=== PATIENT | female | born 1980 ===

== ENCOUNTER 2019-12-30 14:48 | Inpatient (IN) ==
[2019-12-30 17:12] LABS: Hematocrit (blood only) 36.6 % (37-47); Hemoglobin 12.4 g/dL (12.0-16.0); Mean Corpuscular Hemoglobin 32.2 pg (25-34); Mean Corpuscular Hgb Conc 33.9 g/dL (32-36); Mean Corpuscular Volume 95.1 fL (80-100); Mean Platelet Volume 10.6 fL (7.4-10.4); Platelet Count 253 K/uL (130-400); RDW Coefficient of Variation 14.4 % (11.5-14.5); Red Blood Count 3.85 M/uL (4.2-5.4); White Blood Count 11.34 K/uL (4.8-10.8)
[2019-12-30 17:30] LABS: Albumin Level 2.5 gm/dl (3.4-5.0); BUN Creatinine Ratio 10.2 (10-20); Calcium 8.9 mg/dl (8.5-10.1); Creatinine Clr Calc Pharmacy 144.9 ml/min; Est GFR (African American) 131.5; Est GFR (Non-African American) 113.4; Potassium 3.8 mmol/L (3.5-5.1)
[2019-12-30 17:33] LABS: Albumin Globulin Ratio 0.7 (0.9-2); Bilirubin,Total 0.2 mg/dl (0.2-1); Globulin 3.8 gm/dl (2.5-4.0); Total Protein 6.3 gm/dl (6.4-8.2)
[2019-12-30] MEDS ORDERED: OXYTOCIN 30 UNITS/500 ML BAG IV PRN ×2 (18:23→18:25)
--- NOTE | 2019-12-30 19:02 | History & Physical Report ---
Date of Service December 30, 2019 Assessment & Plan (1) Gestational hypertension: (2) Encounter for induction of labor: (3) Unfavorable cervix in term : (4) Post-term , 40-42 weeks of gestation: discussed with patient options for management and dx of gest htn. given ega rec induction and she agreed. she is agreeable to bhat ripening balloon which was placed. then will plan pitocin induction after she has had some dinner at her request. History of Present Illness Chief Complaint: decreased fm Primary Care Provider: NO PCP 39yo at 40+wks ana maria presents to L&D with above cc. She initially came in for nst and it was reactive. BPs elevated, even after sitting for 5min. No rom, no vb. No ctx. Rec she consider induction for gest htn as I feel likely will meet criteria at 4hr la nena. She was agreeable. Had some itching and was worried about that. Labs checked and normal. Urine protein neg. pnc c/b 1. ama 2. palpitation on metoprolol 3. h/o eating disorder 4. excessive wt gain in 5. h/o alcoholism pnl rh neg, rubella immune, gbs negative obh: g1 gynh: no stds, normal pap smears pmh: palpitations, h/o bulemia psh: wisdom teeth Allergies Allergy/AdvReac Type Severity Reaction Status Date / Time Sulfa (Sulfonamide Allergy Unknown Verified 12/27/19 09:39 Antibiotics) Home Medications Home Medications Medication Instructions Recorded Confirmed Type PNV cmb#95-ferrous fumarate-FA 1 tab PO DAILY 08/07/19 12/27/19 History [] ferrous sulfate [iron] 0 mg PO DAILY 08/07/19 12/27/19 History metoprolol succinate 25 mg capsule 12.5 mg PO DAILY ea 09/05/19 12/27/19 History sprinkle, ext. release 24 hr famotidine-Ca carb-mag hydrox PO 12/12/19 12/27/19 History Patient History Social History Preferred Language: Mauritian marital status: Current Living Situation: Spouse Feels Safe at Home: Yes Smoking Status: Unknown if ever smoked Review of Systems as per Subjective / HPI Physical Exam Constitutional: WD/WN, vitals as above Respiratory: normal respiratory effort, lungs clear to auscultation Cardiovascular: Rate/Rhythm: regular rate and regular rhythm Gastrointestinal (Abdomen): soft gravid nt, efw 8# Musculoskeletal: +2 edema nontender calves Neurologic: grossly normal DTRs +2, no clonus Psychiatric: A+Ox3, euthymic affect Genitourinary: Manual OB Exam: + cervical dilation fingertip, + cervical effacement (75%) and + station -2 OB Exam Monitor Tracing: + external FHT monitor used (140 mod variability), + external uterine monitor used (no ctx), + category I and + normal FHT variability Procedure: Informed consent obtained to proceed with cx ripening with bhat Spec placed. cx os visualized and bhat threaded through os and balloon inflated with 40cc water. spec removed. taped to leg on tension. [place] well. Results & Data Vital Signs (Past 12 Hours) Vital Signs Pulse Resp BP Pulse Ox 12/30/19 16:36 111 H 143/66 H 12/30/19 16:31 103 H 152/78 H 12/30/19 16:26 96 H 144/76 H 12/30/19 16:03 104 H 18 127/65 12/30/19 15:21 105 H 95 12/30/19 15:16 108 H 95 12/30/19 15:12 106 H 155/72 H 12/30/19 15:11 110 H 20 173/91 H 97 12/30/19 15:06 118 H 95 12/30/19 15:01 121 H 96 12/30/19 14:56 116 H 95 12/30/19 14:53 121 H 18 144/98 H Code Status & VTE Plan VTE Prophylaxis Plan VTE Prophylaxis will be ordered: No Coding Level of Care Code None Diagnoses Gestational hypertension O13.9 Encounter for induction of labor Z34.90 Unfavorable cervix in term O34.40 Post-term , 40-42 weeks of gestation O48.0
[2019-12-30] MEDS: METOPROLOL SUCC 25MG EXT REL TAB PO SCH (21:29)
[2019-12-30] MEDS: LACTATED RINGER'S 1,000 ML IV PRN (21:30)
[2019-12-31] MEDS ORDERED: ePHEDrine sulfate 50 MG/ML AMP ONE (01:43)
[2019-12-31] MEDS ORDERED: fentaNYL 2MCG/ML ROPIV 1.25MG/ML 100 ML BAG EPI ONE (01:43)
[2019-12-31] MEDS ORDERED: fentaNYL citrate 100 MCG/2 ML VIAL ONE (01:43)
[2019-12-31] MEDS ORDERED: BUPIVACAINE 0.25% 30 ML VIAL ONE ×2 (01:43→15:28)
--- NOTE | 2019-12-31 02:05 | Anesthesiology Consultation ---
Date of Service December 31, 2019 Assessment & Plan ASA ASA2 Proposed Anesthesia Anesthesia Type: Labor Epidural Risk / Benefits Reviewed With: PT / POA / Parent / Guardian, Accepts Plan and Informed Consent Obtained History Height/Weight Height: 5 ft 3 in Weight: 115.031 kg Allergies Allergy/AdvReac Type Severity Reaction Status Date / Time Sulfa (Sulfonamide Allergy Unknown Verified 12/27/19 09:39 Antibiotics) Medications Home Medications Medication Instructions Recorded Confirmed Last Taken PNV cmb#95-ferrous fumarate-FA 1 tab PO DAILY 08/07/19 12/27/19 Unknown [] ferrous sulfate [iron] 0 mg PO DAILY 08/07/19 12/27/19 Unknown metoprolol succinate 25 mg capsule 12.5 mg PO DAILY ea 09/05/19 12/27/19 Unknown sprinkle, ext. release 24 hr famotidine-Ca carb-mag hydrox PO 12/12/19 12/27/19 Unknown Active Medications Generic Name Dose Route Start Last Admin Trade Name Freq PRN Reason Stop Dose Admin Lactated Ringer's 1,000 mls @ 125 mls/hr 12/30/19 18:23 12/30/19 21:30 Lr IV 01/01/20 18:22 125 mls/hr .Q8H PRN Administration L&D Protocol Protocol Oxytocin 30 units in 500 mls @ 13 mls/hr 12/30/19 18:25 12/31/19 01:00 Pitocin IV 01/01/20 18:24 0.78 units/hr .Q24H PRN 13 mls/hr Labor Induction/Augmentation Titration Protocol 0.78 UNITS/HR Metoprolol Succinate 25 mg 12/30/19 21:00 12/30/19 21:29 Toprol Xl PO 01/29/20 20:59 25 mg QPM SHANIA Administration Past Medical History Medical History H/O alcohol dependence H/O chlamydia infection H/O drug dependence H/O eating disorder Varicella Exercise / Class Metabolic Activity II 4-5 Yardwork/Stairs/Walk up hill Past Family History Family History Grandfather (Paternal) Diabetes Grandmother (Paternal) Breast cancer Past Surgical History Surgical History H/O cervical biopsy History of oral surgery Past Anesthesia History No Hx of Anesthesia Complications and No Family Hx of Anesthesia Complications History of PONV No Hx of PONV and No Hx of Motion Sickness Social History Smoking Status: Unknown if ever smoked Alcohol Intake Frequency Comment: documented hx of alcoholism, not discussed in the presence of her mother Review of Systems denies fever/cough/ colds/ chest pain/ SOB/ ANDREE Constitutional: no fever and no chills Respiratory: no cough and no dyspnea denies ANDREE Cardiovascular: no chest pain and no dyspnea on exertion Physical Exam Vital Signs Last Vital Signs Temp 36.7 C 12/30/19 23:30 Pulse 96 H 12/31/19 01:34 Resp 20 12/30/19 23:30 BP 152/75 H 12/31/19 01:34 Pulse Ox 95 12/30/19 15:21 ENMT Mouth: no TMJ abnormality and no dentition abnormality Thyromental Distance: > or= 3.5 Finger Breadths Mallampati Class: II Neck neck extension not limited Respiratory normal respiratory effort; no respiratory distress Auscultation: lungs clear to auscultation bilaterally Cardiovascular Rate/Rhythm: regular rate and regular rhythm Neurologic moves all extremities Psychiatric Orientation: alert and oriented x 3 Testing Laboratory Results 12/30/19 16:58 12/30/19 16:58
[2019-12-31] MEDS: LACTATED RINGER'S 1,000 ML IV PRN ×4 (02:20→19:28)
[2019-12-31] MEDS ORDERED: NALOXONE HCL 0.4 MG/1 ML VIAL/CARP IV PRN ×2 (03:11→21:53)
[2019-12-31] MEDS ORDERED: ePHEDrine sulfate 50 MG/ML AMP IV PRN ×2 (03:11→21:53)
[2019-12-31] MEDS ORDERED: ONDANSETRON INJ 2 MG/ML 2 ML VIAL IV PRN ×2 (03:11→21:53)
[2019-12-31] MEDS ORDERED: NALBUPHINE HCL INJ 10 MG/ML AMP IV PRN ×2 (03:11→21:53)
[2019-12-31] MEDS ORDERED: NALOXONE HCL 1 MG in SODIUM CHLORIDE 0.9% 1000ML 1,000 ML IV PRN ×2 (03:11→21:53)
[2019-12-31] MEDS ORDERED: DiphenhydrAMINE HCL 50 MG/ML VIAL IV PRN ×2 (03:11→21:53)
--- NOTE | 2019-12-31 03:17 | Labor Progress Brief Note ---
Date of Service December 31, 2019 Subjective Reason For Note: Routine Evaluation now comfortable with epidural. Assessment & Plan (1) Post-term , 40-42 weeks of gestation: (2) Encounter for induction of labor: (3) Gestational hypertension: doing well. c/w pit. see how arom augments pattern. Physical Exam Constitutional: WD/WN, vitals as above Psychiatric: A+Ox3, euthymic affect Genitourinary: OB Exam Abdomen: + vertex (BY u/s) Manual OB Exam: + cervical dilation 3 cm, + cervical effacement 90%, + station -2 and + amniotic fluid (AROM) clear OB Exam Monitor Tracing: + external FHT monitor used (130 mod variability) and + normal FHT variability decel to 90s after AROM, improved with position change. Results & Data Vital Signs (Past 12 Hours) Vital Signs Temp Pulse Resp BP Pulse Ox 12/31/19 03:12 98 H 99 12/31/19 03:08 103 H 142/70 H 12/31/19 03:07 102 H 98 12/31/19 03:03 121 H 91 12/31/19 03:02 109 H 97 12/31/19 03:00 106 H 112/58 L 12/31/19 02:57 108 H 96 12/31/19 02:52 114 H 96 12/31/19 02:47 110 H 98 12/31/19 02:45 114 H 18 116/58 L 12/31/19 02:42 110 H 96 12/31/19 02:40 20 12/31/19 02:39 113 H 120/57 L 12/31/19 02:37 113 H 98 12/31/19 02:35 20 12/31/19 02:34 111 H 127/62 12/31/19 02:33 107 H 131/64 12/31/19 02:32 109 H 96 12/31/19 02:31 112 H 132/63 89 L 12/31/19 02:30 20 12/31/19 02:29 107 H 131/72 12/31/19 02:27 100 H 141/76 H 98 12/31/19 02:25 93 H 20 140/80 12/31/19 02:22 101 H 99 12/31/19 02:17 100 H 99 12/31/19 02:12 104 H 100 12/31/19 02:07 96 H 100 12/31/19 01:34 96 H 152/75 H 12/31/19 00:33 93 H 144/75 H 12/30/19 23:32 94 H 155/69 H 12/30/19 23:30 98.1 F 12/30/19 22:31 96 H 134/73 12/30/19 21:30 110 H 142/88 H 12/30/19 21:18 118 H 139/78 12/30/19 19:59 109 H 140/74 12/30/19 19:07 100 H 146/86 H 12/30/19 19:06 98.8 F 12/30/19 16:36 111 H 143/66 H 12/30/19 16:31 103 H 152/78 H 12/30/19 16:26 96 H 144/76 H 12/30/19 16:03 104 H 18 127/65 12/30/19 15:21 105 H 95 12/30/19 15:16 108 H 95 Coding Level of Care Code None Diagnoses Post-term , 40-42 weeks of gestation O48.0 Encounter for induction of labor Z34.90 Gestational hypertension O13.9
[2019-12-31] MEDS ORDERED: CITRIC ACID/SODIUM CITRATE 15 ML UDC PO SCH (06:00)
[2019-12-31] MEDS ORDERED: CEFAZOLIN 3000MG 65 ML IV SCH (06:00)
[2019-12-31] MEDS: fentaNYL 2MCG/ML ROPIV 1.25MG/ML 100 ML BAG EPI PRN ×3 (08:23→18:32)
--- NOTE | 2019-12-31 18:53 | Obstetrical Progress Note ---
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 Slowm progress howev er has reached full dilatation and has started to push. FHR cat 1. Spines +1. Note there has been significant soft caput since my first exam earlier this am. Plan to assesss how she pushes at this time. Results & Data Vital Signs (Past 12 Hours) Vital Signs Temp Pulse Resp BP Pulse Ox 12/31/19 18:49 123 H 79 L 12/31/19 18:47 111 H 99 12/31/19 18:46 99 H 137/80 12/31/19 18:42 102 H 159/73 H 99 12/31/19 18:37 102 H 97 12/31/19 18:32 99 H 97 12/31/19 18:31 97.9 F 98 H 20 136/71 12/31/19 18:27 101 H 95 12/31/19 18:22 104 H 97 12/31/19 18:17 100 H 96 12/31/19 18:15 101 H 133/68 12/31/19 18:12 112 H 97 12/31/19 18:07 106 H 96 12/31/19 18:02 105 H 97 12/31/19 18:01 109 H 149/68 H 12/31/19 17:57 103 H 96 12/31/19 17:52 106 H 95 12/31/19 17:49 109 H 83 L 12/31/19 17:47 111 H 99 12/31/19 17:45 108 H 135/72 12/31/19 17:44 115 H 86 L 12/31/19 17:42 104 H 98 12/31/19 17:37 118 H 98 12/31/19 17:32 106 H 97 12/31/19 17:30 107 H 136/72 12/31/19 17:27 105 H 99 12/31/19 17:22 104 H 97 12/31/19 17:17 106 H 96 12/31/19 17:15 103 H 132/65 12/31/19 17:12 102 H 98 12/31/19 17:07 107 H 97 12/31/19 17:02 105 H 97 12/31/19 17:01 100 H 132/66 12/31/19 16:57 102 H 98 12/31/19 16:52 106 H 96 12/31/19 16:47 102 H 97 12/31/19 16:46 102 H 141/76 H 12/31/19 16:42 105 H 96 12/31/19 16:37 103 H 97 12/31/19 16:32 107 H 99 12/31/19 16:31 104 H 129/75 86 L 12/31/19 16:27 101 H 97 12/31/19 16:22 100 H 99 12/31/19 16:17 102 H 97 12/31/19 16:16 105 H 140/75 12/31/19 16:12 98 H 99 12/31/19 16:07 108 H 97 12/31/19 16:02 106 H 96 12/31/19 16:00 104 H 141/64 H 87 L 12/31/19 15:57 103 H 97 12/31/19 15:52 105 H 97 12/31/19 15:47 106 H 95 12/31/19 15:46 105 H 154/73 H 12/31/19 15:42 103 H 95 12/31/19 15:37 107 H 98 12/31/19 15:32 103 H 97 12/31/19 15:30 97.7 F 22 12/31/19 15:27 114 H 98 12/31/19 15:22 107 H 98 12/31/19 15:17 115 H 99 12/31/19 15:16 113 H 90 12/31/19 15:12 106 H 96 12/31/19 15:07 102 H 98 12/31/19 15:02 99 H 96 12/31/19 15:01 96 H 138/68 12/31/19 14:57 101 H 97 12/31/19 14:52 104 H 96 12/31/19 14:47 122 H 164/71 H 81 L 12/31/19 14:42 115 H 97 12/31/19 14:37 106 H 98 12/31/19 14:32 117 H 97 12/31/19 14:31 111 H 129/58 L 12/31/19 14:27 107 H 97 12/31/19 14:22 109 H 97 12/31/19 14:17 117 H 93 12/31/19 14:15 101 H 139/74 12/31/19 14:12 105 H 100 12/31/19 14:10 112 H 90 12/31/19 14:07 99 H 98 12/31/19 14:02 104 H 20 137/79 97 12/31/19 13:57 102 H 98 12/31/19 13:52 113 H 97 12/31/19 13:47 101 H 98 12/31/19 13:45 118 H 119/96 12/31/19 13:42 104 H 97 12/31/19 13:37 106 H 96 12/31/19 13:32 110 H 97 12/31/19 13:30 105 H 117/65 12/31/19 13:27 113 H 95 12/31/19 13:22 119 H 97 12/31/19 13:17 134 H 96 12/31/19 13:15 98.8 F 134 H 20 134/87 12/31/19 13:12 104 H 99 12/31/19 13:07 100 H 98 12/31/19 13:02 102 H 95 12/31/19 13:00 103 H 136/79 12/31/19 12:57 104 H 96 12/31/19 12:52 104 H 96 12/31/19 12:47 106 H 96 12/31/19 12:45 97 H 130/79 12/31/19 12:42 107 H 97 12/31/19 12:37 107 H 96 12/31/19 12:32 100 H 95 12/31/19 12:30 99 H 125/80 12/31/19 12:27 106 H 96 12/31/19 12:22 117 H 96 12/31/19 12:17 103 H 95 12/31/19 12:15 99 H 119/69 12/31/19 12:12 99 H 95 12/31/19 12:07 101 H 96 12/31/19 12:02 96 H 96 12/31/19 12:01 20 12/31/19 11:57 102 H 95 12/31/19 11:52 110 H 96 12/31/19 11:47 102 H 96 12/31/19 11:45 101 H 110/59 L 12/31/19 11:42 106 H 96 12/31/19 11:37 103 H 96 12/31/19 11:32 100 H 97 12/31/19 11:31 99 H 130/60 02/03/20 11:27 102 H 98 12/31/19 11:22 106 H 97 12/31/19 11:17 106 H 98 12/31/19 11:15 99 H 135/66 12/31/19 11:12 103 H 96 12/31/19 11:08 98.8 F 24 12/31/19 11:07 101 H 97 12/31/19 11:02 103 H 94 12/31/19 11:00 103 H 133/64 12/31/19 10:57 103 H 96 12/31/19 10:52 107 H 98 12/31/19 10:47 105 H 94 12/31/19 10:46 108 H 140/67 12/31/19 10:42 107 H 96 12/31/19 10:37 110 H 95 12/31/19 10:32 107 H 129/58 L 97 12/31/19 10:30 20 12/31/19 10:27 104 H 96 12/31/19 10:22 107 H 97 12/31/19 10:17 107 H 98 12/31/19 10:16 106 H 129/66 12/31/19 10:12 105 H 97 12/31/19 10:07 108 H 96 12/31/19 10:02 107 H 125/58 L 97 12/31/19 09:59 20 12/31/19 09:57 109 H 97 12/31/19 09:52 114 H 96 12/31/19 09:47 114 H 96 12/31/19 09:45 113 H 130/62 12/31/19 09:42 116 H 96 12/31/19 09:37 131 H 98 12/31/19 09:32 119 H 96 12/31/19 09:30 99.0 F 144 H 20 123/68 12/31/19 09:27 155 H 96 12/31/19 09:22 114 H 95 12/31/19 09:17 116 H 96 12/31/19 09:15 108 H 126/58 L 12/31/19 09:12 109 H 95 12/31/19 09:07 107 H 95 12/31/19 09:02 107 H 96 12/31/19 09:00 108 H 132/59 L 12/31/19 08:59 20 12/31/19 08:57 108 H 96 12/31/19 08:52 111 H 98 12/31/19 08:47 110 H 97 12/31/19 08:46 113 H 121/61 12/31/19 08:42 112 H 97 12/31/19 08:37 110 H 97 12/31/19 08:32 115 H 97 12/31/19 08:31 111 H 110/56 L 12/31/19 08:29 98.4 F 20 12/31/19 08:27 112 H 98 12/31/19 08:22 112 H 95 12/31/19 08:17 113 H 96 12/31/19 08:15 115 H 120/76 12/31/19 08:12 108 H 95 12/31/19 08:07 107 H 96 12/31/19 08:02 104 H 96 12/31/19 08:00 107 H 18 117/59 L 12/31/19 07:57 111 H 96 12/31/19 07:52 111 H 95 12/31/19 07:47 110 H 96 12/31/19 07:45 105 H 116/62 12/31/19 07:42 106 H 95 12/31/19 07:37 106 H 95 12/31/19 07:32 115 H 95 12/31/19 07:31 105 H 126/64 12/31/19 07:30 20 12/31/19 07:27 114 H 94 12/31/19 07:22 104 H 94 12/31/19 07:17 104 H 94 12/31/19 07:15 108 H 133/63 92 12/31/19 07:12 103 H 94 12/31/19 07:07 104 H 96 12/31/19 07:02 104 H 97 12/31/19 07:01 103 H 125/58 L 12/31/19 07:00 20 12/31/19 06:57 119 H 97 12/31/19 06:52 99 H 95 PG Care Time/CCT Total # of Minutes Spent Total Time Spent with Patient: Total time spent is greater than 50% in coordina tion of care (as documented) at patient's floor/unit and/or counseling patient: Coding Level of Care Code None
--- NOTE | 2019-12-31 20:14 | Obstetrical Progress Note ---
Date of Service December 31, 2019 Subjective After 1.5 hours of pushing, really no progress at all. No change in station +1cm Offered to continue, discussed the role of C/S. She is favoring C/S, all risks discussed including increased infectio risks Results & Data Vital Signs (Past 12 Hours) Vital Signs Temp Pulse Resp BP Pulse Ox 12/31/19 20:07 117 H 95 12/31/19 20:02 104 H 156/91 H 93 12/31/19 19:57 105 H 93 12/31/19 19:56 109 H 92 12/31/19 19:52 115 H 92 12/31/19 19:49 123 H 92 12/31/19 19:48 127 H 151/86 H 12/31/19 19:47 127 H 85 L 12/31/19 19:43 172 H 87 L 12/31/19 19:42 101 H 88 L 12/31/19 19:37 114 H 94 12/31/19 19:32 121 H 144/78 H 95 12/31/19 19:27 110 H 98 12/31/19 19:22 125 H 87 L 12/31/19 19:21 102 H 89 L 12/31/19 19:17 109 H 149/82 H 94 12/31/19 19:12 110 H 97 12/31/19 19:07 126 H 98 12/31/19 19:02 109 H 20 151/80 H 96 12/31/19 19:00 22 12/31/19 18:57 123 H 97 12/31/19 18:55 97.9 F 20 12/31/19 18:52 112 H 96 12/31/19 18:49 123 H 79 L 12/31/19 18:47 111 H 99 12/31/19 18:46 99 H 20 137/80 12/31/19 18:42 102 H 159/73 H 99 12/31/19 18:37 102 H 97 12/31/19 18:32 99 H 97 12/31/19 18:31 97.9 F 98 H 20 136/71 12/31/19 18:27 101 H 95 12/31/19 18:22 104 H 97 12/31/19 18:17 100 H 96 12/31/19 18:15 101 H 18 133/68 12/31/19 18:12 112 H 97 12/31/19 18:07 106 H 96 12/31/19 18:02 105 H 97 12/31/19 18:01 109 H 149/68 H 12/31/19 17:57 103 H 96 12/31/19 17:52 106 H 95 12/31/19 17:49 109 H 83 L 12/31/19 17:47 111 H 99 12/31/19 17:45 108 H 20 135/72 12/31/19 17:44 115 H 86 L 12/31/19 17:42 104 H 98 12/31/19 17:37 118 H 98 12/31/19 17:32 106 H 97 12/31/19 17:30 107 H 136/72 12/31/19 17:27 105 H 99 12/31/19 17:22 104 H 97 12/31/19 17:17 106 H 96 12/31/19 17:15 97.9 F 103 H 20 132/65 12/31/19 17:12 102 H 98 12/31/19 17:07 107 H 97 12/31/19 17:02 105 H 97 12/31/19 17:01 100 H 132/66 12/31/19 16:57 102 H 98 12/31/19 16:52 106 H 96 12/31/19 16:47 102 H 97 12/31/19 16:46 102 H 20 141/76 H 12/31/19 16:42 105 H 96 12/31/19 16:37 103 H 97 12/31/19 16:32 107 H 99 12/31/19 16:31 104 H 129/75 86 L 12/31/19 16:27 101 H 97 12/31/19 16:22 100 H 99 12/31/19 16:17 102 H 97 12/31/19 16:16 105 H 140/75 12/31/19 16:12 98 H 99 12/31/19 16:07 108 H 97 12/31/19 16:02 106 H 96 12/31/19 16:00 104 H 141/64 H 87 L 12/31/19 15:57 103 H 97 12/31/19 15:52 105 H 97 12/31/19 15:47 106 H 95 12/31/19 15:46 105 H 20 154/73 H 12/31/19 15:42 103 H 95 12/31/19 15:37 107 H 98 12/31/19 15:32 103 H 97 12/31/19 15:30 97.7 F 22 12/31/19 15:27 114 H 98 12/31/19 15:22 107 H 98 12/31/19 15:17 115 H 99 12/31/19 15:16 113 H 90 12/31/19 15:12 106 H 96 12/31/19 15:07 102 H 98 12/31/19 15:02 99 H 96 12/31/19 15:01 96 H 138/68 12/31/19 14:57 101 H 97 12/31/19 14:52 104 H 96 12/31/19 14:47 122 H 164/71 H 81 L 12/31/19 14:42 115 H 97 12/31/19 14:37 106 H 98 12/31/19 14:32 117 H 97 12/31/19 14:31 111 H 129/58 L 12/31/19 14:27 107 H 97 12/31/19 14:22 109 H 97 12/31/19 14:17 117 H 93 12/31/19 14:15 101 H 139/74 12/31/19 14:12 105 H 100 12/31/19 14:10 112 H 90 12/31/19 14:07 99 H 98 12/31/19 14:02 104 H 20 137/79 97 12/31/19 13:57 102 H 98 12/31/19 13:52 113 H 97 12/31/19 13:47 101 H 98 12/31/19 13:45 118 H 119/96 12/31/19 13:42 104 H 97 12/31/19 13:37 106 H 96 12/31/19 13:32 110 H 97 12/31/19 13:30 105 H 117/65 12/31/19 13:27 113 H 95 12/31/19 13:22 119 H 97 12/31/19 13:17 134 H 96 12/31/19 13:15 98.8 F 134 H 20 134/87 12/31/19 13:12 104 H 99 12/31/19 13:07 100 H 98 12/31/19 13:02 102 H 95 12/31/19 13:00 103 H 136/79 12/31/19 12:57 104 H 96 02/03/20 12:52 104 H 96 12/31/19 12:47 106 H 96 12/31/19 12:45 97 H 130/79 12/31/19 12:42 107 H 97 12/31/19 12:37 107 H 96 12/31/19 12:32 100 H 95 12/31/19 12:30 99 H 125/80 12/31/19 12:27 106 H 96 12/31/19 12:22 117 H 96 12/31/19 12:17 103 H 95 12/31/19 12:15 99 H 119/69 12/31/19 12:12 99 H 95 12/31/19 12:07 101 H 96 12/31/19 12:02 96 H 96 12/31/19 12:01 20 12/31/19 11:57 102 H 95 12/31/19 11:52 110 H 96 12/31/19 11:47 102 H 96 12/31/19 11:45 101 H 110/59 L 12/31/19 11:42 106 H 96 12/31/19 11:37 103 H 96 12/31/19 11:32 100 H 97 12/31/19 11:31 99 H 130/60 12/31/19 11:27 102 H 98 12/31/19 11:22 106 H 97 12/31/19 11:17 106 H 98 12/31/19 11:15 99 H 135/66 12/31/19 11:12 103 H 96 12/31/19 11:08 98.8 F 24 12/31/19 11:07 101 H 97 12/31/19 11:02 103 H 94 12/31/19 11:00 103 H 133/64 12/31/19 10:57 103 H 96 12/31/19 10:52 107 H 98 12/31/19 10:47 105 H 94 12/31/19 10:46 108 H 140/67 12/31/19 10:42 107 H 96 12/31/19 10:37 110 H 95 12/31/19 10:32 107 H 129/58 L 97 12/31/19 10:30 20 12/31/19 10:27 104 H 96 12/31/19 10:22 107 H 97 12/31/19 10:17 107 H 98 12/31/19 10:16 106 H 129/66 12/31/19 10:12 105 H 97 12/31/19 10:07 108 H 96 12/31/19 10:02 107 H 125/58 L 97 12/31/19 09:59 20 12/31/19 09:57 109 H 97 12/31/19 09:52 114 H 96 12/31/19 09:47 114 H 96 12/31/19 09:45 113 H 130/62 12/31/19 09:42 116 H 96 12/31/19 09:37 131 H 98 12/31/19 09:32 119 H 96 12/31/19 09:30 99.0 F 144 H 20 123/68 12/31/19 09:27 155 H 96 12/31/19 09:22 114 H 95 12/31/19 09:17 116 H 96 12/31/19 09:15 108 H 126/58 L 12/31/19 09:12 109 H 95 12/31/19 09:07 107 H 95 12/31/19 09:02 107 H 96 12/31/19 09:00 108 H 132/59 L 12/31/19 08:59 20 12/31/19 08:57 108 H 96 12/31/19 08:52 111 H 98 12/31/19 08:47 110 H 97 12/31/19 08:46 113 H 121/61 12/31/19 08:42 112 H 97 12/31/19 08:37 110 H 97 12/31/19 08:32 115 H 97 12/31/19 08:31 111 H 110/56 L 12/31/19 08:29 98.4 F 20 12/31/19 08:27 112 H 98 12/31/19 08:22 112 H 95 12/31/19 08:17 113 H 96 12/31/19 08:15 115 H 120/76 PG Care Time/CCT Total # of Minutes Spent Total Time Spent with Patient: Total time spent is greater than 50% in coordination of care (as documented) at patient's floor/unit and/or counseling patient: Coding Level of Care Code None
[2019-12-31] MEDS ORDERED: CITRIC ACID/SODIUM CITRATE 15 ML UDC ONE (20:20)
--- NOTE | 2019-12-31 20:24 | Labor Progress Brief Note ---
Date of Service December 31, 2019 Patient wishes to proceed with section. She has been fully dilated for 2-1/2 hours and is pushed for an hour and a half there is been no progress the patient is uncomfortable she is aware that we could continue to try and push the baby is not low enough to assist with vacuum and has sick significant caput. I do agree that it is reasonable to do a we also discussed other option I discussed risks I discussed increased chance of infection due to long labor alternatives discussed including labor patient wishes to proceed with Results & Data Vital Signs (Past 12 Hours) Vital Signs Temp Pulse Resp BP Pulse Ox 12/31/19 20:17 110 H 160/87 H 100 12/31/19 20:14 113 H 87 L 12/31/19 20:12 113 H 98 12/31/19 20:07 117 H 95 12/31/19 20:02 104 H 156/91 H 93 12/31/19 19:57 105 H 93 12/31/19 19:56 109 H 92 12/31/19 19:52 115 H 92 12/31/19 19:49 123 H 92 12/31/19 19:48 127 H 151/86 H 12/31/19 19:47 127 H 85 L 12/31/19 19:43 172 H 87 L 12/31/19 19:42 101 H 88 L 12/31/19 19:37 114 H 94 12/31/19 19:32 121 H 144/78 H 95 12/31/19 19:27 110 H 98 12/31/19 19:22 125 H 87 L 12/31/19 19:21 102 H 89 L 12/31/19 19:17 109 H 149/82 H 94 12/31/19 19:12 110 H 97 12/31/19 19:07 126 H 98 12/31/19 19:02 109 H 20 151/80 H 96 12/31/19 19:00 22 12/31/19 18:57 123 H 97 12/31/19 18:55 97.9 F 20 12/31/19 18:52 112 H 96 12/31/19 18:49 123 H 79 L 12/31/19 18:47 111 H 99 12/31/19 18:46 99 H 20 137/80 12/31/19 18:42 102 H 159/73 H 99 12/31/19 18:37 102 H 97 12/31/19 18:32 99 H 97 12/31/19 18:31 97.9 F 98 H 20 136/71 12/31/19 18:27 101 H 95 12/31/19 18:22 104 H 97 12/31/19 18:17 100 H 96 12/31/19 18:15 101 H 18 133/68 12/31/19 18:12 112 H 97 12/31/19 18:07 106 H 96 12/31/19 18:02 105 H 97 12/31/19 18:01 109 H 149/68 H 12/31/19 17:57 103 H 96 12/31/19 17:52 106 H 95 12/31/19 17:49 109 H 83 L 12/31/19 17:47 111 H 99 12/31/19 17:45 108 H 20 135/72 12/31/19 17:44 115 H 86 L 12/31/19 17:42 104 H 98 12/31/19 17:37 118 H 98 12/31/19 17:32 106 H 97 12/31/19 17:30 107 H 136/72 12/31/19 17:27 105 H 99 12/31/19 17:22 104 H 97 12/31/19 17:17 106 H 96 12/31/19 17:15 97.9 F 103 H 20 132/65 12/31/19 17:12 102 H 98 12/31/19 17:07 107 H 97 12/31/19 17:02 105 H 97 12/31/19 17:01 100 H 132/66 12/31/19 16:57 102 H 98 12/31/19 16:52 106 H 96 12/31/19 16:47 102 H 97 12/31/19 16:46 102 H 20 141/76 H 12/31/19 16:42 105 H 96 12/31/19 16:37 103 H 97 12/31/19 16:32 107 H 99 12/31/19 16:31 104 H 129/75 86 L 12/31/19 16:27 101 H 97 12/31/19 16:22 100 H 99 12/31/19 16:17 102 H 97 12/31/19 16:16 105 H 140/75 12/31/19 16:12 98 H 99 02/03/20 16:07 108 H 97 12/31/19 16:02 106 H 96 12/31/19 16:00 104 H 141/64 H 87 L 12/31/19 15:57 103 H 97 12/31/19 15:52 105 H 97 12/31/19 15:47 106 H 95 12/31/19 15:46 105 H 20 154/73 H 12/31/19 15:42 103 H 95 12/31/19 15:37 107 H 98 12/31/19 15:32 103 H 97 12/31/19 15:30 97.7 F 22 12/31/19 15:27 114 H 98 12/31/19 15:22 107 H 98 12/31/19 15:17 115 H 99 12/31/19 15:16 113 H 90 12/31/19 15:12 106 H 96 12/31/19 15:07 102 H 98 12/31/19 15:02 99 H 96 12/31/19 15:01 96 H 138/68 12/31/19 14:57 101 H 97 12/31/19 14:52 104 H 96 12/31/19 14:47 122 H 164/71 H 81 L 12/31/19 14:42 115 H 97 12/31/19 14:37 106 H 98 12/31/19 14:32 117 H 97 12/31/19 14:31 111 H 129/58 L 12/31/19 14:27 107 H 97 12/31/19 14:22 109 H 97 12/31/19 14:17 117 H 93 12/31/19 14:15 101 H 139/74 12/31/19 14:12 105 H 100 12/31/19 14:10 112 H 90 12/31/19 14:07 99 H 98 12/31/19 14:02 104 H 20 137/79 97 12/31/19 13:57 102 H 98 12/31/19 13:52 113 H 97 12/31/19 13:47 101 H 98 12/31/19 13:45 118 H 119/96 12/31/19 13:42 104 H 97 12/31/19 13:37 106 H 96 12/31/19 13:32 110 H 97 12/31/19 13:30 105 H 117/65 12/31/19 13:27 113 H 95 12/31/19 13:22 119 H 97 12/31/19 13:17 134 H 96 12/31/19 13:15 98.8 F 134 H 20 134/87 12/31/19 13:12 104 H 99 12/31/19 13:07 100 H 98 12/31/19 13:02 102 H 95 12/31/19 13:00 103 H 136/79 12/31/19 12:57 104 H 96 12/31/19 12:52 104 H 96 12/31/19 12:47 106 H 96 12/31/19 12:45 97 H 130/79 12/31/19 12:42 107 H 97 12/31/19 12:37 107 H 96 12/31/19 12:32 100 H 95 12/31/19 12:30 99 H 125/80 12/31/19 12:27 106 H 96 12/31/19 12:22 117 H 96 12/31/19 12:17 103 H 95 12/31/19 12:15 99 H 119/69 12/31/19 12:12 99 H 95 12/31/19 12:07 101 H 96 12/31/19 12:02 96 H 96 12/31/19 12:01 20 12/31/19 11:57 102 H 95 12/31/19 11:52 110 H 96 12/31/19 11:47 102 H 96 12/31/19 11:45 101 H 110/59 L 12/31/19 11:42 106 H 96 12/31/19 11:37 103 H 96 12/31/19 11:32 100 H 97 12/31/19 11:31 99 H 130/60 12/31/19 11:27 102 H 98 12/31/19 11:22 106 H 97 12/31/19 11:17 106 H 98 12/31/19 11:15 99 H 135/66 12/31/19 11:12 103 H 96 12/31/19 11:08 98.8 F 24 12/31/19 11:07 101 H 97 12/31/19 11:02 103 H 94 12/31/19 11:00 103 H 133/64 12/31/19 10:57 103 H 96 12/31/19 10:52 107 H 98 12/31/19 10:47 105 H 94 12/31/19 10:46 108 H 140/67 12/31/19 10:42 107 H 96 12/31/19 10:37 110 H 95 12/31/19 10:32 107 H 129/58 L 97 12/31/19 10:30 20 12/31/19 10:27 104 H 96 12/31/19 10:22 107 H 97 12/31/19 10:17 107 H 98 12/31/19 10:16 106 H 129/66 12/31/19 10:12 105 H 97 12/31/19 10:07 108 H 96 12/31/19 10:02 107 H 125/58 L 97 12/31/19 09:59 20 12/31/19 09:57 109 H 97 12/31/19 09:52 114 H 96 12/31/19 09:47 114 H 96 12/31/19 09:45 113 H 130/62 12/31/19 09:42 116 H 96 12/31/19 09:37 131 H 98 12/31/19 09:32 119 H 96 12/31/19 09:30 99.0 F 144 H 20 123/68 12/31/19 09:27 155 H 96 12/31/19 09:22 114 H 95 12/31/19 09:17 116 H 96 12/31/19 09:15 108 H 126/58 L 12/31/19 09:12 109 H 95 12/31/19 09:07 107 H 95 12/31/19 09:02 107 H 96 12/31/19 09:00 108 H 132/59 L 12/31/19 08:59 20 12/31/19 08:57 108 H 96 12/31/19 08:52 111 H 98 12/31/19 08:47 110 H 97 12/31/19 08:46 113 H 121/61 12/31/19 08:42 112 H 97 12/31/19 08:37 110 H 97 12/31/19 08:32 115 H 97 12/31/19 08:31 111 H 110/56 L 12/31/19 08:29 98.4 F 20 12/31/19 08:27 112 H 98 Coding Level of Care Code None
[2019-12-31] MEDS ORDERED: LACTATED RINGER'S 1,000 ML IV SCH ×2 (20:30→23:54)
[2019-12-31] MEDS ORDERED: MoRPHine SULFATE PF 1 MG/ML 10 ML AMP/VIAL ONE (21:03)
[2019-12-31] MEDS ORDERED: MEPERIDINE HCL 25 MG/ML CARP ONE (21:44)
[2019-12-31] MEDS ORDERED: OXYTOCIN 10 UNITS/ML VIAL ONE (21:49)
[2019-12-31] MEDS ORDERED: METOCLOPRAMIDE HCL INJ 5 MG/ML 2 ML VIAL ONE (21:49)
[2019-12-31] MEDS ORDERED: LIDOCAINE HCL 2% MPF (LOCAL) 5 ML VIAL INFIL ONE (21:49)
[2019-12-31] MEDS ORDERED: PROPOFOL IV EMULSION 10 MG/ML 20 ML VIAL IV ONE (21:49)
[2019-12-31] MEDS ORDERED: ONDANSETRON INJ 2 MG/ML 2 ML VIAL ONE (21:49)
[2019-12-31] MEDS ORDERED: MoRPHine SULFATE PF 1 MG/ML 10 ML AMP/VIAL EPI ONE (21:53)
[2019-12-31] MEDS ORDERED: LACTATED RINGER'S 500 ML IV PRN (21:53)
[2019-12-31] MEDS ORDERED: MEPERIDINE HCL 25 MG/ML CARP IV PRN (21:53)
[2019-12-31] MEDS ORDERED: NALOXONE HCL 0.08 MG in SYRINGE 1.8 ML IV PRN (21:53)
[2019-12-31] MEDS ORDERED: PROMETHAZINE HCL 12.5 MG in SODIUM CHLORIDE 0.9% 50 ML IV PRN (21:53)
[2019-12-31] MEDS ORDERED: NO NARCOTICS OR SEDATIVES SCH (22:00)
[2019-12-31] MEDS ORDERED: DC INTRASPINAL MORPHINE SCH (22:00)
[2019-12-31] MEDS ORDERED: SODIUM CHLORIDE 0.9% 1000ML 1,000 ML IV SCH (22:00)
--- NOTE | 2019-12-31 22:11 | Operative Report ---
[facility] Post Operative Report Pre & Post Diagnosis Operation Date: 12/31/19 21:00 Pre-Op Diagnosis: 1. Failure to progress Post-Op Diagnosis: 1. Failure to progress 2. Lower uterine transverse incision 3. Delivery of live male child at 2139 I identified the patient and participated in the time-out.: Yes Procedure Operation Date: 12/31/19 21:00 Actual Procedures p Section in LD - Azeem Pak MD, FACOG Surgeon Azeem Pak MD, FACOG Treatment Specialist none Estimated Blood Loss 500 Findings Consistent with Post-Op Diagnosis Specimens cord gases, blood Description of Procedure Regional anesthetic was given by anesthesia patient had a Plata catheter inserted by nursing patient was prepped and draped in supine position with a leftward tilt preoperative antibiotics were given timeout performed Pickups with teeth were used to test the skin site and it was found adequate for incision scalpel used to make a Pfannenstiel incision cutting down through subcutaneous fat through the fascia fascia was then dissected laterally with the curved Roy's fascia was released superiorly and inferiorly from the rectus muscles with the curved Roy scissors, rectus muscle split peritoneal cavity entered in a superior location. Opening enlarged to allow exposure bladder retractor placed Metzenbaums used to dissect away the bladder flap low segment transverse incision made on the uterus with scalpel entry was done bluntly with the broach operator's finger hysterotomy incision extended with the broach operator's finger in the usual fashion baby was delivered then by flexion of the head and pressure from the medical clerical assistant on the abdomen mouth and then nares were suctioned baby was then delivered fully without difficulty without excessive force live vigorous infant cord clamped and cut cord gases obtained cord blood obtained placenta removed manually within ensured all placenta removed with a moist lap sponge uterus exteriorized IV Pitocin had been started by anesthesia and uterine tone improved. The uterus was closed in 2 layers first layer and 0 Monocryl running locked second layer 0 Monocryl nonlocked after generous irrigation and suction of the cul-de-sac and bladder flap regions hemostasis was excellent uterus was placed back in the peritoneal cavity and hemostasis was excellent rectus muscles were inspected and found to be dry fascia closed with 0 Vicryl subcutaneous fat closed with 3-0 Vicryl prior to this subcutaneous fat was irrigated skin closed with 4-0 subcuticular Monocryl incision DIANE dressing urine was the same slightly tinged color at the end of the procedure I attest to the content of the Intraoperative Record and any orders documented therein. Any exceptions are noted below.
[2019-12-31] MEDS ORDERED: PROMETHAZINE HCL 6.25 MG in SODIUM CHLORIDE 0.9% 50 ML IV PRN (22:31)
--- NOTE | 2019-12-31 22:32 | Anesthesia Procedure Note ---
Date of Service December 31, 2019 Anesthesia Post Epidural Note Vital Signs Vital Signs: Temp Pulse Resp BP Pulse Ox 36.6 C 105 H 20 96/52 L 88 L 12/31/19 18:55 12/31/19 22:29 12/31/19 20:00 12/31/19 22:29 12/31/19 22:29 Pain Intensity Right Lower Back: Pain Intensity: 2 Notes Mental Status: alert / awake / arousable Nausea / Vomiting: adequately controlled Pain: adequately controlled Airway Patency, RR, SpO2: stable & adequate BP & HR: stable & adequate Hydration State: stable & adequate Neuraxial Anesthesia: was administered and sensory block is resolving Anesthetic Complications: no major complications apparent and Pt Satisfied with anesthetic care Epidural: Removed without complications and With tip intact
[2019-12-31 22:42] LABS: Base Excess Cord Venous Blood -3.2 mEq/L (-7.7-1.9); Cord Venous Blood HCO3 23 mmol/L (18.4-26.8); Cord Venous Blood PCO2 44 mmHg (30.4-57.2); Cord Venous Blood PO2 31 mmHg (14.1-43.3); Cord Venous Blood pH 7.33 (7.20-7.44)
[2019-12-31 22:51] LABS: Base Excess Cord Arterial Bld -2.7 mEq/L (-9-1.8); CO2 Cord Arterial Blood 53 mmHg (39.1-73.5); HCO3 Cord Arterial Blood 25 mmol/L (19.7-28.5); PO2 Cord Arterial Blood 22 mmHg (4.1-31.7); pH Cord Arterial Blood 7.29 (7.1-7.38)
[2019-12-31 22:57] LABS: Oxygen Sat Cord Arterial Blood < 60.0 % (<60)
[2019-12-31] MEDS: KETOROLAC 30 MG/ML VIAL IV PRN (23:44)
[2019-12-31] MEDS: METOPROLOL SUCC 25MG EXT REL TAB PO SCH (23:45)
[2019-12-31] MEDS ORDERED: BENZOCAINE 20% AER SPR 82.5 GM CAN EXT PRN (23:54)
[2019-12-31] MEDS ORDERED: SENNA 8.6 MG TAB PO PRN (23:54)
[2019-12-31] MEDS ORDERED: PROMETHAZINE HCL 25 MG in SODIUM CHLORIDE 0.9% 50 ML IV PRN (23:54)
[2019-12-31] MEDS ORDERED: SUPERCREAM 0.870% 15 GM JAR EXT PRN (23:54)
[2019-12-31] MEDS ORDERED: DIPHTHERIA/TETANUS/PERTUSSIS 0.5 ML SYR/VIAL IM ONE (23:54)
[2019-12-31] MEDS ORDERED: MAGNESIUM HYDROXIDE SUSP 30 ML UDC PO PRN (23:54)
[2019-12-31] MEDS ORDERED: HYDROCORTISONE ACETATE 25 MG SUPP PR PRN (23:54)
[2020-01-01] MEDS: OXYTOCIN 20 UNITS in LACTATED RINGER'S 1,000 ML IV SCH ×2 (00:47→08:32)
[2020-01-01 06:29] LABS: Basophils # (auto) 0.01 K/uL (0-0.2); Basophils % (auto) 0.1 %; Eosinophils # (auto) 0.04 K/uL (0-0.5); Eosinophils % (auto) 0.2 %; Hematocrit (blood only) 31.4 % (37-47); Hemoglobin 10.7 g/dL (12.0-16.0); Immature Granulocytes # (auto) 0.07 K/uL (0.00-0.02); Immature Granulocytes % (auto) 0.4 %; Lymphocytes # (auto) 1.45 K/uL (1.2-3.4); Lymphocytes % (auto) 8.1 %; Mean Corpuscular Hemoglobin 32.2 pg (25-34); Mean Corpuscular Hgb Conc 34.1 g/dL (32-36); Mean Corpuscular Volume 94.6 fL (80-100); Mean Platelet Volume 10.4 fL (7.4-10.4); Monocytes # (auto) 1.28 K/uL (0.11-0.59); Monocytes % (auto) 7.2 %; Neutrophils # (auto) 14.95 K/uL (1.4-6.5); Platelet Count 225 K/uL (130-400); RDW Coefficient of Variation 14.5 % (11.5-14.5); RDW Standard Deviation 50.1 fL (36.4-46.3); Red Blood Count 3.32 M/uL (4.2-5.4)
--- NOTE | 2020-01-01 06:31 | Obstetrical Progress Note ---
Date of Service January 01, 2020 Assessment & Plan (1) Status post : Marilyn is a 39 yo on POD 1 after emergency c/s for failure to progress at term - GBS- , Rh-, Rubella immune - will await baby's blood type testing - patient with gestational HTN. BP currently at 116/77 on Metoprolol 25mg QHS; continue to monitor - patient is doing clinically well continue routine post- care - After discharge will have [address] Pak. Supervising Physician Co-Signing Physician Notes Resident Physician Supervision Note: I was present with Dr. cruz during the history and exam. I discussed the case with the resident and agree with the findings and plan as documented in the note. Any exceptions or clarifications are listed here: [None] Documented By: Azeem Pak MD, FACOG Subjective Ambulation: ambulating normally Voiding: bhat removed, awaiting void trial Passing Gas:: not yet Diet Tolerance:: clear liquid diet Lochia:: Small Feeding Type:: breast feeding Review of Systems Constitutional: no fever, no chills and no sweats Respiratory: no cough and no dyspnea Cardiovascular: no chest pain and no palpitations Gastrointestinal: no nausea and no vomiting Genitourinary: no dysuria and no urinary frequency Neurologic: no headache(s) Physical Exam Constitutional: WD/WN, vitals as above no acute distress Respiratory: normal respiratory effort, lungs clear to auscultation does not use accessory muscles Auscultation: no crackles, no rhonchi, no wheezes and no pleural rub Cardiovascular: Rate/Rhythm: regular rate and regular rhythm Heart Sounds: normal S1 and normal S2; no gallop, no murmur and no cardiac rub Extremities: no calf tenderness and no pedal edema Gastrointestinal (Abdomen): Inspection/Auscultation: normal bowel sounds; abdomen not distended Percussion/Palpation: abdomen soft surgical incision: DIANE dressing in place; minimal dried blood visible; no warmth; appropriate post-op tenderness Genitourinary: Uterus: fundus firm, palpable 1 cm below the umbilicus Results & Data Vital Signs (Past 12 Hours) Vital Signs Temp Pulse Pulse Resp BP BP Pulse Ox 01/01/20 06:05 16 94 01/01/20 05:15 14 92 01/01/20 04:47 14 93 02/04/20 03:00 36.7 C 94 H 16 116/77 95 01/01/20 02:20 16 93 01/01/20 01:36 16 94 01/01/20 00:45 36.4 C L 88 16 128/85 94 01/01/20 00:37 99 H 95 01/01/20 00:35 36.7 C 98 H 18 134/81 01/01/20 00:32 95 H 94 01/01/20 00:27 92 H 94 01/01/20 00:22 93 H 95 01/01/20 00:17 89 97 01/01/20 00:12 105 H 96 01/01/20 00:07 103 H 96 01/01/20 00:06 93 H 150/75 H 01/01/20 00:05 20 01/01/20 00:02 95 H 96 12/31/19 23:57 103 H 97 12/31/19 23:52 103 H 97 12/31/19 23:47 93 H 99 12/31/19 23:45 103 H 144/73 H 12/31/19 23:42 96 H 98 12/31/19 23:37 100 H 97 12/31/19 23:35 100 H 20 145/70 H 12/31/19 23:32 89 94 12/31/19 23:27 89 95 12/31/19 23:25 90 18 135/66 12/31/19 23:22 90 95 12/31/19 23:17 91 H 95 12/31/19 23:15 88 18 122/60 12/31/19 23:12 95 H 94 12/31/19 23:07 99 H 94 12/31/19 23:06 107 H 116/68 12/31/19 23:05 16 12/31/19 23:02 109 H 96 12/31/19 22:57 102 H 97 12/31/19 22:56 104 H 119/59 L 12/31/19 22:55 16 12/31/19 22:52 110 H 96 12/31/19 22:47 107 H 96 12/31/19 22:45 110 H 20 105/56 L 12/31/19 22:42 109 H 96 12/31/19 22:37 114 H 95 12/31/19 22:35 36.7 C 104 H 20 103/55 L 12/31/19 22:34 134 H 88 L 12/31/19 22:32 105 H 89 L 12/31/19 22:29 105 H 96/52 L 88 L 12/31/19 22:28 107 H 95/48 L 12/31/19 22:27 107 H 89 L 12/31/19 22:26 109 H 99/45 L 12/31/19 22:22 116 H 89 L 12/31/19 21:09 107 H 133/66 12/31/19 21:05 110 H 94 12/31/19 21:02 106 H 131/62 12/31/19 21:00 106 H 22 100 12/31/19 20:57 106 H 90 12/31/19 20:55 104 H 100 12/31/19 20:50 107 H 99 12/31/19 20:47 104 H 149/74 H 12/31/19 20:45 109 H 96 12/31/19 20:40 102 H 99 12/31/19 20:32 107 H 145/77 H 97 12/31/19 20:31 116 H 85 L 12/31/19 20:27 106 H 97 12/31/19 20:23 111 H 91 12/31/19 20:22 110 H 97 12/31/19 20:17 110 H 160/87 H 100 12/31/19 20:14 113 H 87 L 12/31/19 20:12 113 H 98 12/31/19 20:07 117 H 95 12/31/19 20:02 104 H 156/91 H 93 12/31/19 20:00 20 12/31/19 19:57 105 H 93 12/31/19 19:56 109 H 92 12/31/19 19:52 115 H 92 12/31/19 19:49 123 H 92 12/31/19 19:48 127 H 151/86 H 12/31/19 19:47 127 H 85 L 12/31/19 19:43 172 H 87 L 12/31/19 19:42 101 H 88 L 12/31/19 19:37 114 H 94 12/31/19 19:32 121 H 144/78 H 95 12/31/19 19:27 110 H 98 12/31/19 19:22 125 H 87 L 12/31/19 19:21 102 H 89 L 12/31/19 19:17 109 H 149/82 H 94 12/31/19 19:12 110 H 97 12/31/19 19:07 126 H 98 12/31/19 19:02 109 H 20 151/80 H 96 12/31/19 19:00 22 12/31/19 18:57 123 H 97 12/31/19 18:55 36.6 C 20 12/31/19 18:52 112 H 96 12/31/19 18:49 123 H 79 L 12/31/19 18:47 111 H 99 12/31/19 18:46 99 H 20 137/80 12/31/19 18:42 102 H 159/73 H 99 12/31/19 18:37 102 H 97 12/31/19 18:32 99 H 97 12/31/19 18:31 36.6 C 98 H 20 136/71 Resident Activity Tracking Resident Involvement: Resident Care Provided Care Provided: OB Delivery
[2020-01-01] MEDS: FERROUS SULFATE 325 MG TAB PO SCH (07:45)
[2020-01-01] MEDS: PRENATAL VITAMIN 1 TAB PO SCH (07:45)
[2020-01-01] MEDS: DOCUSATE SODIUM 100 MG CAP PO SCH ×2 (07:45→20:52)
[2020-01-01] MEDS: SIMETHICONE 80 MG CHEW PO SCH ×4 (07:45→20:52)
--- NOTE | 2020-01-01 08:19 | Anesthesiology Progress Note ---
Date of Service January 01, 2020 Labor epidural to cs. VSS. No complaints. Neuro status intact. Happy with care. Anesthesia Post Procedure Vital Signs Vital Signs: Temp Pulse Pulse Resp BP BP Pulse Ox 01/01/20 08:00 36.5 C 89 20 116/70 95 01/01/20 06:05 16 94 01/01/20 05:15 14 92 01/01/20 04:47 14 93 01/01/20 03:00 36.7 C 94 H 16 116/77 95 01/01/20 02:20 16 93 01/01/20 01:36 16 94 01/01/20 00:45 36.4 C L 88 16 128/85 94 01/01/20 00:37 99 H 95 01/01/20 00:35 36.7 C 98 H 18 134/81 01/01/20 00:32 95 H 94 01/01/20 00:27 92 H 94 01/01/20 00:22 93 H 95 01/01/20 00:17 89 97 01/01/20 00:12 105 H 96 01/01/20 00:07 103 H 96 01/01/20 00:06 93 H 150/75 H 01/01/20 00:05 20 01/01/20 00:02 95 H 96 12/31/19 23:57 103 H 97 12/31/19 23:52 103 H 97 12/31/19 23:47 93 H 99 12/31/19 23:45 103 H 144/73 H 12/31/19 23:42 96 H 98 12/31/19 23:37 100 H 97 12/31/19 23:35 100 H 20 145/70 H 12/31/19 23:32 89 94 12/31/19 23:27 89 95 12/31/19 23:25 90 18 135/66 12/31/19 23:22 90 95 12/31/19 23:17 91 H 95 12/31/19 23:15 88 18 122/60 12/31/19 23:12 95 H 94 12/31/19 23:07 99 H 94 12/31/19 23:06 107 H 116/68 12/31/19 23:05 16 12/31/19 23:02 109 H 96 12/31/19 22:57 102 H 97 12/31/19 22:56 104 H 119/59 L 02/03/20 22:55 16 12/31/19 22:52 110 H 96 12/31/19 22:47 107 H 96 12/31/19 22:45 110 H 20 105/56 L 12/31/19 22:42 109 H 96 12/31/19 22:37 114 H 95 12/31/19 22:35 36.7 C 104 H 20 103/55 L 12/31/19 22:34 134 H 88 L 12/31/19 22:32 105 H 89 L 12/31/19 22:29 105 H 96/52 L 88 L 12/31/19 22:28 107 H 95/48 L 12/31/19 22:27 107 H 89 L 12/31/19 22:26 109 H 99/45 L 12/31/19 22:22 116 H 89 L 12/31/19 21:09 107 H 133/66 12/31/19 21:05 110 H 94 12/31/19 21:02 106 H 131/62 12/31/19 21:00 106 H 22 100 12/31/19 20:57 106 H 90 12/31/19 20:55 104 H 100 12/31/19 20:50 107 H 99 12/31/19 20:47 104 H 149/74 H 12/31/19 20:45 109 H 96 12/31/19 20:40 102 H 99 12/31/19 20:32 107 H 145/77 H 97 12/31/19 20:31 116 H 85 L 12/31/19 20:27 106 H 97 12/31/19 20:23 111 H 91 12/31/19 20:22 110 H 97 12/31/19 20:17 110 H 160/87 H 100 12/31/19 20:14 113 H 87 L 12/31/19 20:12 113 H 98 12/31/19 20:07 117 H 95 12/31/19 20:02 104 H 156/91 H 93 12/31/19 20:00 20 12/31/19 19:57 105 H 93 12/31/19 19:56 109 H 92 12/31/19 19:52 115 H 92 12/31/19 19:49 123 H 92 12/31/19 19:48 127 H 151/86 H 02/03/20 19:47 127 H 85 L 12/31/19 19:43 172 H 87 L 12/31/19 19:42 101 H 88 L 12/31/19 19:37 114 H 94 12/31/19 19:32 121 H 144/78 H 95 12/31/19 19:27 110 H 98 12/31/19 19:22 125 H 87 L 12/31/19 19:21 102 H 89 L 12/31/19 19:17 109 H 149/82 H 94 12/31/19 19:12 110 H 97 12/31/19 19:07 126 H 98 12/31/19 19:02 109 H 20 151/80 H 96 12/31/19 19:00 22 12/31/19 18:57 123 H 97 12/31/19 18:55 36.6 C 20 12/31/19 18:52 112 H 96 12/31/19 18:49 123 H 79 L 12/31/19 18:47 111 H 99 12/31/19 18:46 99 H 20 137/80 12/31/19 18:42 102 H 159/73 H 99 12/31/19 18:37 102 H 97 12/31/19 18:32 99 H 97 12/31/19 18:31 36.6 C 98 H 20 136/71 12/31/19 18:27 101 H 95 12/31/19 18:22 104 H 97 12/31/19 18:17 100 H 96 12/31/19 18:15 101 H 18 133/68 12/31/19 18:12 112 H 97 12/31/19 18:07 106 H 96 12/31/19 18:02 105 H 97 12/31/19 18:01 109 H 149/68 H 12/31/19 17:57 103 H 96 12/31/19 17:52 106 H 95 12/31/19 17:49 109 H 83 L 12/31/19 17:47 111 H 99 12/31/19 17:45 108 H 20 135/72 12/31/19 17:44 115 H 86 L 12/31/19 17:42 104 H 98 12/31/19 17:37 118 H 98 12/31/19 17:32 106 H 97 12/31/19 17:30 107 H 136/72 12/31/19 17:27 105 H 99 12/31/19 17:22 104 H 97 12/31/19 17:17 106 H 96 12/31/19 17:15 36.6 C 103 H 20 132/65 12/31/19 17:12 102 H 98 12/31/19 17:07 107 H 97 12/31/19 17:02 105 H 97 12/31/19 17:01 100 H 132/66 12/31/19 16:57 102 H 98 12/31/19 16:52 106 H 96 12/31/19 16:47 102 H 97 12/31/19 16:46 102 H 20 141/76 H 12/31/19 16:42 105 H 96 12/31/19 16:37 103 H 97 12/31/19 16:32 107 H 99 12/31/19 16:31 104 H 129/75 86 L 12/31/19 16:27 101 H 97 12/31/19 16:22 100 H 99 12/31/19 16:17 102 H 97 12/31/19 16:16 105 H 140/75 12/31/19 16:12 98 H 99 12/31/19 16:07 108 H 97 12/31/19 16:02 106 H 96 12/31/19 16:00 104 H 141/64 H 87 L 12/31/19 15:57 103 H 97 12/31/19 15:52 105 H 97 12/31/19 15:47 106 H 95 12/31/19 15:46 105 H 20 154/73 H 12/31/19 15:42 103 H 95 12/31/19 15:37 107 H 98 12/31/19 15:32 103 H 97 12/31/19 15:30 36.5 C 22 12/31/19 15:27 114 H 98 12/31/19 15:22 107 H 98 12/31/19 15:17 115 H 99 12/31/19 15:16 113 H 90 12/31/19 15:12 106 H 96 12/31/19 15:07 102 H 98 12/31/19 15:02 99 H 96 12/31/19 15:01 96 H 138/68 12/31/19 14:57 101 H 97 12/31/19 14:52 104 H 96 12/31/19 14:47 122 H 164/71 H 81 L 12/31/19 14:42 115 H 97 12/31/19 14:37 106 H 98 12/31/19 14:32 117 H 97 12/31/19 14:31 111 H 129/58 L 12/31/19 14:27 107 H 97 12/31/19 14:22 109 H 97 12/31/19 14:17 117 H 93 12/31/19 14:15 101 H 139/74 12/31/19 14:12 105 H 100 12/31/19 14:10 112 H 90 12/31/19 14:07 99 H 98 12/31/19 14:02 104 H 20 137/79 97 12/31/19 13:57 102 H 98 12/31/19 13:52 113 H 97 12/31/19 13:47 101 H 98 12/31/19 13:45 118 H 119/96 12/31/19 13:42 104 H 97 12/31/19 13:37 106 H 96 12/31/19 13:32 110 H 97 12/31/19 13:30 105 H 117/65 12/31/19 13:27 113 H 95 12/31/19 13:22 119 H 97 12/31/19 13:17 134 H 96 12/31/19 13:15 37.1 C 134 H 20 134/87 12/31/19 13:12 104 H 99 12/31/19 13:07 100 H 98 12/31/19 13:02 102 H 95 12/31/19 13:00 103 H 136/79 12/31/19 12:57 104 H 96 12/31/19 12:52 104 H 96 12/31/19 12:47 106 H 96 12/31/19 12:45 97 H 130/79 12/31/19 12:42 107 H 97 12/31/19 12:37 107 H 96 12/31/19 12:32 100 H 95 12/31/19 12:30 99 H 125/80 12/31/19 12:27 106 H 96 12/31/19 12:22 117 H 96 12/31/19 12:17 103 H 95 12/31/19 12:15 99 H 119/69 12/31/19 12:12 99 H 95 12/31/19 12:07 101 H 96 12/31/19 12:02 96 H 96 12/31/19 12:01 20 12/31/19 11:57 102 H 95 12/31/19 11:52 110 H 96 12/31/19 11:47 102 H 96 12/31/19 11:45 101 H 110/59 L 12/31/19 11:42 106 H 96 12/31/19 11:37 103 H 96 12/31/19 11:32 100 H 97 12/31/19 11:31 99 H 130/60 12/31/19 11:27 102 H 98 12/31/19 11:22 106 H 97 12/31/19 11:17 106 H 98 12/31/19 11:15 99 H 135/66 12/31/19 11:12 103 H 96 12/31/19 11:08 37.1 C 24 12/31/19 11:07 101 H 97 12/31/19 11:02 103 H 94 12/31/19 11:00 103 H 133/64 12/31/19 10:57 103 H 96 12/31/19 10:52 107 H 98 12/31/19 10:47 105 H 94 12/31/19 10:46 108 H 140/67 12/31/19 10:42 107 H 96 12/31/19 10:37 110 H 95 12/31/19 10:32 107 H 129/58 L 97 12/31/19 10:30 20 12/31/19 10:27 104 H 96 12/31/19 10:22 107 H 97 12/31/19 10:17 107 H 98 12/31/19 10:16 106 H 129/66 12/31/19 10:12 105 H 97 12/31/19 10:07 108 H 96 12/31/19 10:02 107 H 125/58 L 97 12/31/19 09:59 20 12/31/19 09:57 109 H 97 12/31/19 09:52 114 H 96 12/31/19 09:47 114 H 96 12/31/19 09:45 113 H 130/62 12/31/19 09:42 116 H 96 12/31/19 09:37 131 H 98 12/31/19 09:32 119 H 96 12/31/19 09:30 37.2 C 144 H 20 123/68 12/31/19 09:27 155 H 96 12/31/19 09:22 114 H 95 12/31/19 09:17 116 H 96 12/31/19 09:15 108 H 126/58 L 12/31/19 09:12 109 H 95 12/31/19 09:07 107 H 95 12/31/19 09:02 107 H 96 12/31/19 09:00 108 H 132/59 L 12/31/19 08:59 20 12/31/19 08:57 108 H 96 12/31/19 08:52 111 H 98 12/31/19 08:47 110 H 97 12/31/19 08:46 113 H 121/61 12/31/19 08:42 112 H 97 12/31/19 08:37 110 H 97 12/31/19 08:32 115 H 97 12/31/19 08:31 111 H 110/56 L 12/31/19 08:29 36.9 C 20 12/31/19 08:27 112 H 98 12/31/19 08:22 112 H 95 Pain Intensity Right Lower Back: Pain Intensity: 0 Lower Abdomen: Pain Intensity: 1 Notes Mental Status: alert / awake / arousable and participated in evaluation Nausea / Vomiting: adequately controlled Pain: adequately controlled Airway Patency, RR, SpO2: stable & adequate BP & HR: stable & adequate Hydration State: stable & adequate
--- NOTE | 2020-01-01 08:49 | Communication Note ---
Date of Service: January 01, 2020 Pt. is s/p Csec x 1 day. Pt had an epidural as the anesthetic. Pt has no c/o H/A ,nor any other neurologic complaints. Pt has been up and ambulating.
[2020-01-01] MEDS ORDERED: NON-FORMULARY MEDICATION (Pnv Cmb#95-Ferrous Fumarate-Fa [Prenatal] 1 TAB) PO SCH (09:00)
[2020-01-01] MEDS: KETOROLAC 30 MG/ML VIAL IV PRN (15:10)
[2020-01-01] MEDS ORDERED: ONDANSETRON INJ 2 MG/ML 2 ML VIAL IV PRN (15:53)
[2020-01-01] MEDS ORDERED: KETOROLAC 30 MG/ML VIAL IV PRN (15:53)
[2020-01-01] MEDS ORDERED: DiphenhydrAMINE HCL 50 MG/ML VIAL IV PRN (15:53)
[2020-01-01] MEDS ORDERED: MEPERIDINE HCL 50 MG/ML CARP IV PRN (15:53)
[2020-01-01] MEDS ORDERED: bisacodyL 5 MG TABEC PO SCH (20:00)
[2020-01-01] MEDS: METOPROLOL SUCC 25MG EXT REL TAB PO SCH (20:51)
[2020-01-01] MEDS ORDERED: METOPROLOL SUCC 25MG EXT REL TAB PO SCH (21:00)
[2020-01-01] MEDS: IBUPROFEN 600 MG TAB PO PRN (22:17)
[2020-01-02] MEDS: IBUPROFEN 600 MG TAB PO PRN ×5 (02:24→21:54)
[2020-01-02 05:53] LABS: Hematocrit (blood only) 30.6 % (37-47); Hemoglobin 10.2 g/dL (12.0-16.0)
--- NOTE | 2020-01-02 06:25 | Obstetrical Progress Note ---
Date of Service January 02, 2020 Assessment & Plan (1) Status post : Marilyn is a 39 yo on POD 2 after emergency c/s for failure to progress at term - GBS- , Rh-, Rubella immune - baby's blood type Rh -; rhogam not indicated - patient with gestational HTN. BP currently at 105/72 on Metoprolol 25mg QHS; continue to monitor - patient is doing clinically well continue routine post- care - After discharge will have [address] Pak. Supervising Physician Co-Signing Physician Notes Resident Physician Supervision Note: I was present with Dr. Choe during the history and exam. I discussed the case with the resident and agree with the findings and plan as documented in the note. Any exceptions or clarifications are listed here: Patient c/o numbness on thighs, over distribution of lateral femoral cutaneous nerve. Suspect nerve bruising from 2nd stage. Discussed, will resolve but will take time Documented By: Douglas Perez Jr, MD, FACOG Subjective Ambulation: ambulating normally Voiding: regular diet Passing Gas:: yes Diet Tolerance:: regular Lochia:: Small Feeding Type:: breast feeding Review of Systems Constitutional: no fever, no chills and no sweats Respiratory: no cough and no dyspnea Cardiovascular: no chest pain and no palpitations Gastrointestinal: no nausea and no vomiting Genitourinary: no dysuria and no urinary frequency Neurologic: + numbness (bilateral inner thighs); no headache(s) Physical Exam Constitutional: WD/WN, vitals as above no acute distress Respiratory: normal respiratory effort, lungs clear to auscultation does not use accessory muscles Auscultation: no crackles, no rhonchi, no wheezes and no pleural rub Cardiovascular: Rate/Rhythm: regular rate and regular rhythm Heart Sounds: normal S1 and normal S2; no gallop, no murmur and no cardiac rub Extremities: no calf tenderness and no pedal edema Gastrointestinal (Abdomen): Inspection/Auscultation: normal bowel sounds; abdomen not distended Percussion/Palpation: abdomen soft surgical incision: javier dressing in place; minimal dried blood visible; no warmth; appropriate post-op tenderness Neurologic: Motor/Sensory: no sensory deficit Genitourinary: Uterus: fundus firm, palpable 2 cm below the umbilicus Results & Data Vital Signs (Past 12 Hours) Vital Signs Temp Pulse Resp BP Pulse Ox 01/02/20 02:20 36.7 C 95 H 16 105/72 97 01/01/20 20:30 36.6 C 98 H 16 117/73 97 Resident Activity Tracking Resident Involvement: Resident Care Provided Care Provided: OB Delivery
[2020-01-02] MEDS: DOCUSATE SODIUM 100 MG CAP PO SCH ×2 (08:29→20:51)
[2020-01-02] MEDS: FERROUS SULFATE 325 MG TAB PO SCH (08:29)
[2020-01-02] MEDS: PRENATAL VITAMIN 1 TAB PO SCH (08:29)
[2020-01-02] MEDS: SIMETHICONE 80 MG CHEW PO SCH ×4 (08:29→20:52)
[2020-01-02] MEDS: OXYCODONE/ACETAMINOPHEN 5mg/325mg TAB PO PRN ×4 (09:05→21:54)
[2020-01-02] MEDS: METOPROLOL SUCC 25MG EXT REL TAB PO SCH (20:52)
[2020-01-02] MEDS ORDERED: bisacodyL 10 MG SUPP PR PRN (22:09)
--- NOTE | 2020-01-03 06:16 | Obstetrical Progress Note ---
Date of Service January 03, 2020 Assessment & Plan (1) Status post : Marilyn is a 39 yo on POD 3 after emergency c/s for failure to progress at term - GBS- , Rh-, Rubella immune - baby's blood type Rh -; rhogam not indicated - patient with gestational HTN. BP currently at 146/83 on Metoprolol 25mg QHS - patient is doing clinically well Discharge instructions reviewed - After discharge will have [address] Pak. Supervising Physician Co-Signing Physician Notes Resident Physician Supervision Note: I was present with Dr. Choe during the history and exam. I discussed the case with the resident and agree with the findings and plan as documented in the note. Any exceptions or clarifications are listed here: none Subjective Ambulation: ambulating normally Voiding: regular diet Passing Gas:: yes Diet Tolerance:: regular Lochia:: Small Feeding Type:: breast feeding Review of Systems Constitutional: no fever, no chills and no sweats Respiratory: no cough and no dyspnea Cardiovascular: no chest pain and no palpitations Gastrointestinal: no nausea and no vomiting Genitourinary: no dysuria and no urinary frequency Neurologic: + numbness (bilateral inner thighs); no headache(s) Physical Exam Constitutional: WD/WN, vitals as above no acute distress Respiratory: normal respiratory effort, lungs clear to auscultation does not use accessory muscles Auscultation: no crackles, no rhonchi, no wheezes and no pleural rub Cardiovascular: Rate/Rhythm: regular rate and regular rhythm Heart Sounds: normal S1 and normal S2; no gallop, no murmur and no cardiac rub Extremities: no calf tenderness and no pedal edema Gastrointestinal (Abdomen): Inspection/Auscultation: normal bowel sounds; abdomen not distended Percussion/Palpation: abdomen soft surgical incision: javier dressing in place; minimal dried blood visible; no warmth; appropriate post-op tenderness Neurologic: Motor/Sensory: no sensory deficit Genitourinary: Uterus: fundus firm, palpable 2 cm below the umbilicus Results & Data Vital Signs (Past 12 Hours) Vital Signs Temp Pulse Resp BP 01/02/20 23:46 36.8 C 101 H 18 146/83 H 01/02/20 19:43 36.3 C L 106 H 18 137/77 Resident Activity Tracking Resident Involvement: Resident Care Provided Care Provided: OB Delivery
[2020-01-03] MEDS: IBUPROFEN 600 MG TAB PO PRN (06:57)
[2020-01-03] MEDS: OXYCODONE/ACETAMINOPHEN 5mg/325mg TAB PO PRN (06:57)
[2020-01-03] MEDS: FERROUS SULFATE 325 MG TAB PO SCH (07:20)
[2020-01-03] MEDS: SIMETHICONE 80 MG CHEW PO SCH (07:20)
[2020-01-03] MEDS: PRENATAL VITAMIN 1 TAB PO SCH (07:20)
[2020-01-03] MEDS: DOCUSATE SODIUM 100 MG CAP PO SCH (07:20)
== END 2020-01-03 11:29 | disposition home or self-care (01) | DRG 787 ==
LOC: OPB 14:48 → 4S1 14:51 → 4S2 01-01 00:45